=== PATIENT | male | born 1995 | race African-American/Black ===

== ENCOUNTER 2020-05-31 19:36 | Emergency (ER) | payer SELFPAY ==
[~2020-05-31] VITALS: Ht 185.4 cm; Wt 81.8 kg
[2020-05-31 19:47] VITALS: BP 120/74; TEMP 98.4
[2020-05-31 21:04] VITALS: PULSE 87
== END 2020-05-31 21:05 | disposition home or self-care (01) ==
LOC: COL.ER 19:36
DX: S61.411A Laceration without foreign body of right hand, initial encounter (principal); S60.416A Abrasion of right little finger, initial encounter; F17.200 Nicotine dependence, unspecified, uncomplicated; W22.01XA Walked into wall, initial encounter